=== PATIENT | male | born 1995 | race Caucasian/White ===

== ENCOUNTER 2019-02-21 09:16 | Emergency (ER) | payer BC ==
[2019-02-21 09:27] VITALS: BP 122/85
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
[2019-02-21] MEDS ORDERED: traMADol 50 MG Tab PO ONE (10:02)
[2019-02-21] MEDS ORDERED: Ketorolac 10 MG Tab PO ONE (10:02)
== END 2019-02-21 10:17 | disposition home or self-care (01) ==
LOC: LL.ED 09:16
DX: M79.622 Pain in left upper arm (principal); F17.200 Nicotine dependence, unspecified, uncomplicated
CPT/HCPCS: 73030-LT; 99283-25; A9270-GY